=== PATIENT | female | born 1930 | race Caucasian/White ===

== ENCOUNTER 2017-07-05 09:02 | Inpatient (IN) | payer OTHER ==
[~2017-07-05] VITALS: Ht 149.9 cm; Wt 47.0 kg
[2017-07-05] VITALS (27 sets, daily range): BP systolic 98–184; BP diastolic 55–77; PULSE 50–76; RESP 16–34; Ht 149.9 cm; Wt 47.0 kg
[~2017-07-05 09:02] MED LIST: CLINDAMYCIN 600 MG/D5W (PMX) 50 ML IVPB SCH; LACTATED RINGER'S 1,000 ML IV SCH; TRANEXAMIC ACID 1,000 MG in SOD CHLORIDE 0.9% 100 ML IV SCH
[2017-07-05] MEDS ORDERED: LISI20TA11 PO (12:26)
[2017-07-05] MEDS ORDERED: ATEN100T PO (12:26)
[2017-07-05] MEDS ORDERED: PRAV80TA27 PO (12:27)
[2017-07-05] MEDS ORDERED: [UNRECOGNIZED DRUG - CODE] PO (12:28)
[2017-07-05] MEDS ORDERED: FOLI1TAB5 PO (12:28)
[2017-07-05] MEDS ORDERED: FLUT16SP17 NASAL (12:29)
[2017-07-05] MEDS ORDERED: LORA-186 PO (12:29)
[2017-07-05] MEDS ORDERED: TRAM-40 PO (12:30)
[2017-07-05] MEDS ORDERED: OMEP20CA16 PO (12:30)
[2017-07-05] MEDS ORDERED: ACET-820 PO (12:32)
[2017-07-05] MEDS ORDERED: POLYMYXIN/BACITRACIN 1L IRRIG ONE (14:37)
[2017-07-05] MEDS ORDERED: KETOROLAC 30 MG INJ ONE (14:37)
[2017-07-05] MEDS ORDERED: morphine SULFATE/PF (10 MG/10 ML) INJ ONE (14:37)
--- NOTE | 2017-07-05 14:44 | HPN ---
Date/Time of Note Date/Time of Note DATE: 07/05/17 TIME: 14:44 Interval H&P Admission Note Pt. seen H&P reviewed: No system changes SARY SARMIENTO PA-C Jul 05, 2017 14:44
[2017-07-05] MEDS ORDERED: FENTAnyl 50 MCG/ML VIAL ONE (15:06)
[2017-07-05] MEDS ORDERED: MIDAZOLAM 1 MG/ML 2 ML INJ ONE (15:06)
[2017-07-05] MEDS ORDERED: DEXAMETHASONE 4 MG/ML 1 ML INJ ONE (16:21)
[2017-07-05] MEDS ORDERED: PROPOFOL 20 ML ONE (16:21)
[2017-07-05] MEDS ORDERED: ONDANSETRON 4 MG INJ ONE (16:22)
[2017-07-05] MEDS ORDERED: ROCURONIUM 50 MG INJ ONE (16:22)
[2017-07-05] MEDS ORDERED: METOCLOPRAMIDE 10 MG INJ IV PRN (16:30)
[2017-07-05] MEDS ORDERED: OXYCODONE/ACETAMINOPHEN (5/325) TAB PO PRN ×2 (16:30)
[2017-07-05] MEDS ORDERED: ONDANSETRON 4 MG INJ IV PRN (16:30)
[2017-07-05] MEDS ORDERED: FENTAnyl 50 MCG/ML VIAL IV PRN ×3 (16:30)
[2017-07-05] MEDS ORDERED: LABETALOL HCL 20MG INJ IV PRN (16:30)
[2017-07-05] MEDS ORDERED: DIPHENHYDRAMINE 50 MG INJ IV PRN (16:30)
[2017-07-05] MEDS ORDERED: MEPERIDINE 25 MG INJ IV PRN (16:30)
[2017-07-05] MEDS ORDERED: hydrALAzine 20 MG INJ IV PRN (16:30)
[2017-07-05] MEDS ORDERED: EPHEDrine SULFATE 50 MG/5 ML SYG IV PRN (16:30)
[2017-07-05] MEDS ORDERED: HYDROmorphONE (0.2 MG/ML) 10ML SYG IV PRN ×3 (16:30)
[2017-07-05] MEDS ORDERED: LIDOCAINE 2% (SDV) 5 ML INJ ONE (16:36)
[2017-07-05] MEDS ORDERED: ROPIVACAINE 0.5 % 30 ML VIAL ONE (16:37)
--- NOTE | 2017-07-05 16:44 | SIPON ---
Date/Time of Note Date/Time of Note DATE: 07/05/17 TIME: 16:42 Operative Report Preoperative Diagnosis left knee medial osteoarthritis Postoperative Diagnosis same Operation/Procedure Performed left medial UKA Surgeon Vinny Murillo MD mailroom assistant JORDI Vizcaino Anesthesia: spinal Estimated blood loss: 100 - 150 ml's Transfusion Required none Specimen none Grafts/Implants left medial S&N ZUK Femoral Compnent size C Tibial Component Size 1 Poly 10mm Complications none CHANTE GREEN MD Jul 05, 2017 16:44
[2017-07-05] MEDS ORDERED: BUPIVACAINE 0.5%/EPI (SDV) 30 ML INJ INJ ONE (16:49)
--- NOTE | 2017-07-05 16:53 | OPR ---
Date/Time of Note Date/Time of Note DATE: 07/05/17 TIME: 16:41 Operative Report Procedure Date: Jul 05, 2017 Preoperative Diagnosis left knee DJD Postoperative Diagnosis same Operation/Procedure Performed Left medial unicondylar knee replacement Surgeon see signature line Rail Switchman Anton Hamlin Anesthesia Type: general Anesthesiologist: ABY CARRILLO Estimated Blood Loss: 150 - 200 ml's Transfusion none Specimen bone Grafts/Implants ZUK knee, C femur, 1 tibia, 10 poly Complications none Pt Condition Post Procedure: stable Indications severe DJD Of the left knee Procedure Description see dictation NAFISA MCCAIN Jul 05, 2017 16:51
[2017-07-05] MEDS ORDERED: ASPIRIN (EC) 325 MG TAB PO ONE (17:00)
[2017-07-05] MEDS ORDERED: MAGNESIUM HYDROXIDE 30ML CUP PO PRN (17:00)
[2017-07-05] MEDS ORDERED: NA PHOSPHATE/BIPHOS 133 ML ENEMA PR PRN (17:00)
[2017-07-05] MEDS ORDERED: BISACODYL 10 MG SUPP PR PRN (17:00)
[2017-07-05] MEDS ORDERED: BETHANECHOL 25 MG TAB PO PRN (17:00)
[2017-07-05] MEDS ORDERED: DIPHENHYDRAMINE 50 MG INJ IM PRN (17:00)
[2017-07-05] MEDS ORDERED: HYDROmorphONE 0.2 MG/ML PCA IV PRN (17:00)
[2017-07-05] MEDS ORDERED: ZOLPIDEM 5 MG TAB PO PRN (17:00)
[2017-07-05] MEDS ORDERED: DOCUSATE SODIUM 100 MG CAP PO ONE (17:00)
[2017-07-05] MEDS ORDERED: COUMADIN NOTE XX SCH (17:00)
[2017-07-05] MEDS ORDERED: NALOXONE (0.4 MG/ML) INJ IV PRN (17:00)
[2017-07-05] MEDS ORDERED: oxyCODONE 5 MG TAB PO PRN ×3 (17:00)
[2017-07-05] MEDS ORDERED: SENNA/DOCUSATE NA (8.6MG/50MG) TAB PO PRN (17:00)
[2017-07-05] MEDS ORDERED: MEPERIDINE 10 MG/ML 30 ML PCA IV PRN (17:00)
[2017-07-05] MEDS ORDERED: LORAZEPAM 2 MG INJ IV PRN (18:00)
[2017-07-05] MEDS ORDERED: traMADol 50 MG TAB PO PRN (18:00)
--- NOTE | 2017-07-05 18:11 | HP ---
Date/Time of Note Date/Time of Note DATE: 07/05/17 TIME: 18:03 Assessment/Plan VTE Prophylaxis VTE Prophylaxis Intervention: SCD's Lines/Catheters IV Catheter Type (from Nrsg): Peripheral IV Assessment/Plan Chief Complaint/Hosp Course Patient is a 86-year-old female here for elective left knee surgery Assessment and plan Left knee pain Left knee replacement Hypertension Hypertriglyceridemia Gastric reflux -Status post left knee replacement, consulting for orthopedic surgery -Restart medications as able -Cardiac diet for blood pressure -Pain control as needed -Supportive care -We will follow Problems: HPI/ROS Admit Date/Time Admit Date/Time Jul 05, 2017 at 11:04 Hx of Present Illness Patient is a 86-year-old female with past medical history significant for arthritis and hypertension who presents to [facility] for elective left knee replacement. Patient successfully received left knee replacement and is resting comfortably in the ED. Patient only complains of left knee pain at the surgical site. Patient denies any shortness of breath nausea vomiting or headache. PMH: Arthritis, hypertension, allergies, hypertriglyceridemia, GERD PSH: Left knee replacement, right knee replacement in 2011 Social: Non-smoker, drinks, denies drugs Meds: Atenolol, fluticasone spray, lisinopril, loratadine, tramadol, acetaminophen, folic acid, omeprazole, pravastatin PMH/Family/Social Social History Smoking Status: Former smoker Exam/Review of Systems Vital Signs Vitals Vital Signs Date Time Temp Pulse Resp B/P Pulse Ox O2 Delivery O2 Flow Rate FiO2 07/05/17 17:53 50 24 123/72 95 Room Air 07/05/17 17:13 97.6 Exam Exam Physical exam General: Patient is laying in bed and answers questions appropriately Mentation: Patient is alert and oriented 4, Head: Normocephalic atraumatic Eyes: EOMI, pupils reactive to light Neck: Supple, nontender, midline Respiratory: Clear to auscultation bilaterally Cardiovascular: regular rate, no obvious murmurs Gastrointestinal: non-tender to palpation, bowel sounds heard. Neurological: Moves all extremities spontaneously Skin: No new skin lesions, left knee surgical site bandaged and CDI Medications Medications Current Medications Lactated Ringer's 1,000 ml @ 25 mls/hr Q24H IV ; Start 07/05/17 at 06:00; Stop 07/06/17 at 21:59 Dextrose/Lactated Ringer's (D5-Lr) 1,000 ml @ 80 mls/hr [id number] IV ; Start 07/12 at 16:55 Hydromorphone HCl (Dilaudid [employer]ER) Q4PCA PRN IV SEVERE PAIN 8-10; Start at 17:00; Stop 07/06/17 at 09:00 Meperidine HCl (Demerol CAFETERIA [employer]OD SERVER) Q4PCA PRN IV SEVERE PAIN 8-10; Start 07/05/17 at 17:00; Stop 07/06/17 at 09:00; Status Future Hold Oxycodone HCl (Roxicodone) 20 mg Q3H PRN PO PAIN LEVEL 8-10; Start 07/05/17 at 17:00; Status UNV Oxycodone HCl (Roxicodone) 10 mg Q3H PRN PO PAIN LEVEL 4-7; Start 07/05/17 at 17:00; Status UNV Oxycodone HCl 5 mg 5 mg Q3H PRN PO PAIN LEVEL 1-3; Start 07/05/17 at 17:00; Status UNV Acetaminophen (Ofirmev 1000mg/ 100ml Iv) 100 ml @ 400 mls/hr Q8H IVPB ; Start 07/05/17 at 17:00; Stop 07/07/17 at 09:14 Zolpidem Tartrate (Ambien) 5 mg HS PRN PO INSOMNIA; Start 07/05/17 at 17:00; Status UNV Ondansetron HCl (Zofran Inj) 4 mg Q6H IV ; Start 07/05/17 at 17:00; Stop 07/06 at 11:01 Miscellaneous Information (Note) NOTE XX ; Start 07/05/17 at 17:00 Aspirin (Ecotrin) 325 mg DAILY PO ; Start 07/06/17 at 09:00; Stop 07/09/17 at 08:59 Dexamethasone (Decadron) 4 mg DAILY@07 IV ; Start 07/06/17 at 07:00; Stop at 06:59 Pantoprazole (Protonix Tab) 40 mg DAILY@06 PO ; Start 07/07/17 at 06:00 Docusate Sodium/ Ferrous Fumarate (Emory-Sequels) 1 tab BID PO ; Start at 09:00 Docusate Sodium (Colace) 200 mg BID PO ; Start 07/06/17 at 09:00; Stop at 08:59 Simethicone (Mylicon) 80 mg TID PRN PO DISTENSION/GAS/BLOATING; Start at 17:00; Status UNV Senna/Docusate Sodium (Senokot-S) 2 tab BID PRN PO CONSTIPATION; Start at 17:00; Status UNV Magnesium Hydroxide (Milk Of Mag) 30 ml HS PRN PO CONSTIPATION; Start at 17:00 Bisacodyl (Dulcolax Supp) 10 mg DAILY PRN [place] CONSTIPATION; Start 07/05/17 at 17:00 Sodium Biphosphate/ Sodium Phosphate (Fleet Enema) 133 ml DAILY PRN [place] CONSTIPATION; Start 07/05/17 at 17:00; Status UNV Diphenhydramine HCl (Benadryl) 25 mg Q4H PRN IM ITCHING OR RASH; Start at 17:00 Bupivacaine HCl/ Epinephrine Bitart (Marcaine 0.25%/ Epi (Sdv) 30 ml) 20 ml DAILY@06 PRN INJ ADMINSTER BY SURGEON ONLY; Start 07/06/17 at 06:00; Stop at 05:59 Naloxone HCl 0.2 mg 0.2 mg Q2M PRN IV DECREASED REPIRATORY RATE; Start at 17:00 Clindamycin HCl/ Dextrose (Cleocin 900 Mg/ D5W (Pmx)) 50 ml @ 50 mls/hr Q8 IVPB ; Start 07/05/17 at 22:00; Stop 07/06/17 at 12:00 Gabapentin (Neurontin) 100 mg TID GTB ; Start 07/05/17 at 21:00; Stop at 20:59 Atenolol (Tenormin) 100 mg DAILY PO ; Start 07/06/17 at 09:00 Lisinopril (Zestril) 20 mg DAILY PO ; Start 07/06/17 at 09:00 Loratadine (Claritin) 10 mg DAILY PO ; Start 07/06/17 at 09:00 Tramadol HCl (Ultram) 50 mg TID PRN PO PAIN; Start 07/05/17 at 18:00; Status UNV Miscellaneous Information 1 each DAILY PO ; Start 07/06/17 at 09:00; Status UNV Miscellaneous Information 80 mg HS PO ; Start 07/05/17 at 21:00; Status UNV Lorazepam (Ativan) 0.5 mg Q6H PRN IV anxiety; Start 07/05/17 at 18:00; Status UNV EMMETT NUNN Jul 05, 2017 18:11
[2017-07-05] MEDS: ACETAMINOPHEN 1000MG/100ML IV 100 ML IVPB SCH (19:13)
[2017-07-05] MEDS ORDERED: TRANEXAMIC ACID IVPB ONE (20:00)
[2017-07-05] MEDS ORDERED: SOD CHLORIDE 0.9% IVPB ONE (20:00)
[2017-07-05] MEDS ORDERED: ATORVASTATIN 20 MG TAB PO SCH (21:00)
[2017-07-05] MEDS: DEXTROSE 5%-LR 1,000 ML IV SCH (22:22)
[2017-07-05] MEDS: GABAPENTIN 100 MG CAP GTB SCH (22:59)
[2017-07-05] MEDS: ONDANSETRON 4 MG INJ IV SCH ×2 (22:59→23:00)
[2017-07-06] VITALS: BP 150/65; RESP 19
[2017-07-06] MEDS: CLINDAMYCIN 900 MG/D5W (PMX) 50 ML IVPB SCH ×2 (01:07→06:11)
[2017-07-06] MEDS: ACETAMINOPHEN 1000MG/100ML IV 100 ML IVPB SCH ×2 (01:11→09:16)
[2017-07-06] MEDS ORDERED: TRANEXAMIC ACID IVPB ONE (02:00)
[2017-07-06] MEDS ORDERED: SOD CHLORIDE 0.9% IVPB ONE (02:00)
[2017-07-06 02:21] VITALS: BP 159/93; RESP 18
--- NOTE | 2017-07-06 02:25 | OPR ---
DATE OF OPERATION: 07/05/2017 PREOPERATIVE DIAGNOSIS: Osteoarthritis of the left knee. POSTOPERATIVE DIAGNOSIS: Osteoarthritis of the left knee. OPERATION: Left medial unicondylar knee replacement. SURGEON: Lidia ANESTHESIA: General. ANESTHESIOLOGIST: Dr. Juan Ayers TECHNICAL PROJECT LEAD: Anton Hamlin ESTIMATED BLOOD LOSS: 100 mL. COMPLICATIONS: None. INDICATIONS: The patient is an 86-year-old female with advanced osteoarthritis of her left knee. DESCRIPTION OF PROCEDURE: After administration of anesthesia, the patient was placed supine on the operating room table. All bony points were well padded. Preoperative antibiotics were administered . The left knee was examined and found to have a flexion deformity of 10 degrees, and a varus defor mity of 10 degrees. An anterior approach was used. The medial compartment was exposed with a subva stus approach. The medial collateral ligament was protected. There was severe wear of the medial c ompartment with complete loss of cartilage, osteophytes and loose bodies. The medial unicondylar kn ee replacement was prepared using a [employer] knee system. The tibial cut was first made and 3 to 4 mm of bone removed from the medial side. After this, the femoral cuts were made with the provided jigs. The femur was prepared for a size C femoral component, and the tibia prepared for a size 1 tibia. Ten mm of polyethylene was found to be well fitting. With the trials in place, the knee had almost full range of motion with good balance and tracking. Osteophytes were removed. The hemostasis was achieved with electrocautery and Aquamantys. Final implants were then cemented in place including a size C femur, size 1 tibia. Ten mm of polyethylene was placed. Excess cement was removed. The kn ee was injected with 0.25% Marcaine with epinephrine, along with Toradol and closed in layers using #1 Vicryl for arthrotomy and fascia, 2-0 Vicryl for subcutaneous tissue and 3-0 Monocryl for the ski n. The patient was transferred to the recovery room in stable condition. Dictated By: NAFISA BRAVO/CORAL Conf#: [id number] DID#: [id number]
[2017-07-06] MEDS: DEXTROSE 5%-LR 1,000 ML IV SCH (05:25)
[2017-07-06] MEDS: ONDANSETRON 4 MG INJ IV SCH ×2 (05:34→11:00)
[2017-07-06 05:50] LABS: BASOPHILS % 0.1 % (0.0-2.0); HEMATOCRIT 34.6 % (37.0-47.0); HEMOGLOBIN 10.8 g/dl (12.0-16.0); LYMPHOCYTES # 0.8 10^3/ul (0.8-2.9); LYMPHOCYTES % 6.8 % (15.0-51.0); MEAN CORPUSCULAR HEMOGLOBIN 32.8 pg (29.0-33.0); MEAN CORPUSCULAR HGB CONC 31.2 g/dl (32.0-37.0); MEAN CORPUSCULAR VOLUME 105.2 fl (82.0-101.0); MEAN PLATELET VOLUME 11.2 fl (7.4-10.4); MONOCYTE # 0.5 10^3/ul (0.3-0.9); NEUTROPHIL # 9.9 10^3/ul (1.6-7.5); NEUTROPHILS % 88.3 % (39.0-77.0); PLATELET COUNT 208 10^3/UL (140-415); RED BLOOD COUNT 3.29 10^6/ul (4.20-5.40); RED CELL DISTRIBUTION WIDTH 12.1 % (11.5-14.5); WHITE BLOOD COUNT 11.3 10^3/ul (4.8-10.8)
[2017-07-06] MEDS ORDERED: BUPIVACAINE 0.25%/EPI (SDV) 30 ML INJ INJ PRN (06:00)
[2017-07-06 06:39] LABS: CALCIUM 8.7 mg/dl (8.4-10.2); CREATININE 0.82 mg/dl (0.44-1.00); MAGNESIUM 1.1 mg/dl (1.7-2.5); PHOSPHORUS 4.9 mg/dl (2.5-4.9); POTASSIUM 4.6 mmol/L (3.5-5.1)
[2017-07-06] MEDS ORDERED: DEXAMETHASONE 4 MG/ML 1 ML INJ IV SCH (07:00)
--- NOTE | 2017-07-06 08:05 | PN ---
Date/Time of Note Date/Time of Note DATE: 07/06/17 TIME: 08:00 Assessment/Plan VTE Prophylaxis VTE Prophylaxis Intervention: ambulation, SCD's, other (Aspirin 325 mg daily) Lines/Catheters IV Catheter Type (from Nrs): Peripheral IV Byrne in Place (from Nrs): No Assessment/Plan Problems: (1) Status post right partial knee replacement Assessment/Plan -Pain Meds as needed -Keep Mepilex dressing applied until follow-up -OOB with PT -ASA/SCDs for DVT Prophylaxis -Continue monitoring with Internal Medicine -Patient Stable -DC home today with home health pending no complications. Subjective 24 Hr Interval Summary 86-year-old female postop day 1 status post left unicondylar arthroplasty to the medial side. Patient is doing well status post surgery. Has yet to initiate physical therapy. Denies any pain at this time. Patient is lying comfortably in bed. Denies any complications status post surgery. Denies any fevers, chills or malaise. Denies any calf pain. Constitutional: no complaints Pain Control: well controlled Exam/Review of Systems Vital Signs Vitals Vital Signs Date Time Temp Pulse Resp B/P Pulse Ox O2 Delivery O2 Flow Rate FiO2 07/06/17 02:21 97.6 58 18 159/93 97 07/05/17 20:30 Room Air Intake and Output 07/05/17 07/05/17 07/06/17 15:00 23:00 07:00 Intake Total 900 ml 650 ml Output Total 150 ml Balance 750 ml 650 ml Exam Free Text/Dictation -Dressing remained stable over the knee. No signs of any fluid drainage or complications of wound. -5/5 Tibialis Anterior, EHL Gastrocnemius/Soleus and Peroneals -Fully extending on exam today with flexion to 90. -Normal Sensation -Palpable DP/PT, Capillary Refill <2 secs -No Distal Edema -Negative Bel Sign/No calf pain -Toes Freely Movable Constitutional: alert, oriented, well developed Results Result Diagram: 07/06/17 0437 07/06/17 0437 SARY SARMIENTO PA-C Jul 06, 2017 08:05
--- NOTE | 2017-07-06 08:08 | PDOCDIS ---
Discharge Instructions DIAGNOSIS Discharge Diagnosis Status post left knee medial unicondylar knee replacement CONDITION Patient Condition: Stable HOME CARE INSTRUCTIONS: Diet Instructions: Regular ACTIVITY: Activity Restrictions: Slowly Increase Activity Rest between Activity Avoid heavy lifting No Sexual Activity Do not Drive Do not operate Machinery Do not operate Power Tool Avoid Heavy Housework Keep Limb Elevated (And use cold therapy.) Weight Bearing (Weightbearing as tolerated. May use front wheeled walker for assisted ambulation if needed.) Bathing Restrictions: Shower (Keep wound dry. Continue with Mepilex dressing until postoperative appointment.) FOLLOW UP/APPOINTMENTS Follow-up Plan Follow-up on postoperative appointment provided at her preoperative visit. SARY SARMIENTO PA-C Jul 06, 2017 08:08
[2017-07-06 08:30] VITALS: BP 157/71; RESP 18
[2017-07-06] MEDS ORDERED: NON-FORMULARY/PATIENT OWN MED (Omeprazole* 20 MG) PO SCH (09:00)
[2017-07-06] MEDS ORDERED: LORATADINE 10 MG TAB PO SCH (09:00)
[2017-07-06] MEDS ORDERED: MULTIVITAMINS/MINERALS TAB PO SCH (09:00)
[2017-07-06] MEDS ORDERED: LISINOPRIL 20 MG TAB PO SCH (09:00)
[2017-07-06] MEDS ORDERED: FERROUS FUMARATE (SR) TAB PO SCH (09:00)
[2017-07-06] MEDS ORDERED: ATENOLOL 100 MG TAB PO SCH (09:00)
[2017-07-06] MEDS ORDERED: ASPIRIN (EC) 325 MG TAB PO SCH (09:00)
[2017-07-06] MEDS ORDERED: DOCUSATE SODIUM 100 MG CAP PO SCH (09:00)
[2017-07-06] MEDS: GABAPENTIN 100 MG CAP GTB SCH (09:16)
--- NOTE | 2017-07-06 13:40 | PN ---
Date/Time of Note Date/Time of Note DATE: 07/06/17 TIME: 13:39 Assessment/Plan VTE Prophylaxis VTE Prophylaxis Intervention: SCD's Lines/Catheters IV Catheter Type (from Nrsg): Peripheral IV Urinary Cath still in place: No Assessment/Plan Chief Complaint/Hosp Course Patient is a 86-year-old female here for elective left knee surgery Assessment and plan Left knee pain Left knee replacement Hypertension Hypertriglyceridemia Gastric reflux -Status post left knee replacement, consulting for orthopedic surgery -Restart medications as able -Cardiac diet for blood pressure -Pain control as needed -Supportive care -We will follow -likely dc today Problems: Subjective 24 Hr Interval Summary Free Text/Dictation feels well, minimal pain Exam/Review of Systems Vital Signs Vitals Vital Signs Date Time Temp Pulse Resp B/P Pulse Ox O2 Delivery O2 Flow Rate FiO2 07/06/17 08:30 98.5 75 18 157/71 93 07/05/17 20:30 Room Air Intake and Output 07/05/17 07/05/17 07/06/17 15:00 23:00 07:00 Intake Total 900 ml 650 ml Output Total 150 ml Balance 750 ml 650 ml Exam Physical exam General: Patient is laying in bed and answers questions appropriately Mentation: Patient is alert and oriented 4, Head: Normocephalic atraumatic Eyes: EOMI, pupils reactive to light Neck: Supple, nontender, midline Respiratory: Clear to auscultation bilaterally Cardiovascular: regular rate, no obvious murmurs Gastrointestinal: non-tender to palpation, bowel sounds heard. Neurological: Moves all extremities spontaneously Skin: No new skin lesions, left knee surgical site bandaged and CDI Results Result Diagram: 07/06/17 0437 07/06/17 0437 Results 24 hrs Laboratory Tests Test 07/06/17 04:37 White Blood Count 11.3 H Red Blood Count 3.29 L Hemoglobin 10.8 L Hematocrit 34.6 L Mean Corpuscular Volume 105.2 H Mean Corpuscular Hemoglobin 32.8 Mean Corpuscular Hemoglobin Concent 31.2 L Red Cell Distribution Width 12.1 Platelet Count 208 Mean Platelet Volume 11.2 H Neutrophils % 88.3 H Lymphocytes % 6.8 L Monocytes % 4.0 Eosinophils % 0.0 Basophils % 0.1 Nucleated Red Blood Cells % 0.0 Neutrophils # 9.9 H Lymphocytes # 0.8 Monocytes # 0.5 Eosinophils # 0.0 Basophils # 0.0 Nucleated Red Blood Cells # 0.0 Sodium Level 133 L Potassium Level 4.6 Chloride Level 100 Carbon Dioxide Level 27 Anion Gap 11 Blood Urea Nitrogen 17 Creatinine 0.82 Glucose Level 216 Calcium Level 8.7 Phosphorus Level 4.9 Magnesium Level 1.1 L Medications Medications Current Medications Lactated Ringer's 1,000 ml @ 25 mls/hr Q24H IV ; Start 07/05/17 at 06:00; Stop 07/06/17 at 21:59 Dextrose/Lactated Ringer's (D5-Lr) 1,000 ml @ 80 mls/hr [id number] IV Last administered on 07/05/17 22:22; Admin Dose 80 MLS/HR; Start 07/05/17 at 16:55 Oxycodone HCl (Roxicodone) 20 mg Q3H PRN PO PAIN LEVEL 8-10; Start 07/05/17 at 17:00 Oxycodone HCl (Roxicodone) 10 mg Q3H PRN PO PAIN LEVEL 4-7; Start 07/05/17 at 17:00 Oxycodone HCl 5 mg 5 mg Q3H PRN PO PAIN LEVEL 1-3; Start 07/05/17 at 17:00 Acetaminophen (Ofirmev 1000mg/ 100ml Iv) 100 ml @ 400 mls/hr Q8H IVPB Last administered on 07/06/17 09:16; Admin Dose 400 MLS/HR; Start 07/05/17 at 17: 00; Stop 07/07/17 at 09:14 Zolpidem Tartrate (Ambien) 5 mg HS PRN PO INSOMNIA; Start 07/05/17 at 17:00 Miscellaneous Information (Note) NOTE XX ; Start 07/05/17 at 17:00 Aspirin (Ecotrin) 325 mg DAILY PO Last administered on 07/06/17 09:17; Admin Dose 325 MG; Start 07/06/17 at 09:00; Stop 07/09/17 at 08:59 Dexamethasone (Decadron) 4 mg DAILY@07 IV Last administered on 07/06/17 06:11 ; Admin Dose 4 MG; Start 07/06/17 at 07:00; Stop 07/09/17 at 06:59 Pantoprazole (Protonix Tab) 40 mg DAILY@06 PO ; Start 07/07/17 at 06:00 Docusate Sodium/ Ferrous Fumarate (Emory-Sequels) 1 tab BID PO Last administered on 07/06/17 09:17; Admin Dose 1 TAB; Start 07/06/17 at 09:00 Docusate Sodium (Colace) 200 mg BID PO Last administered on 07/06/17 09:17; Admin Dose 200 MG; Start 07/06/17 at 09:00; Stop 07/09/17 at 08:59 Simethicone (Mylicon) 80 mg TID PRN PO DISTENSION/GAS/BLOATING; Start at 17:00 Senna/Docusate Sodium (Senokot-S) 2 tab BID PRN PO CONSTIPATION; Start at 17:00 Magnesium Hydroxide (Milk Of Mag) 30 ml HS PRN PO CONSTIPATION; Start at 17:00 Bisacodyl (Dulcolax Supp) 10 mg DAILY PRN [place] CONSTIPATION; Start 07/05/17 at 17:00 Sodium Biphosphate/ Sodium Phosphate (Fleet Enema) 133 ml DAILY PRN [place] CONSTIPATION; Start 07/05/17 at 17:00 Diphenhydramine HCl (Benadryl) 25 mg Q4H PRN IM ITCHING OR RASH; Start at 17:00 Bupivacaine HCl/ Epinephrine Bitart (Marcaine 0.25%/ Epi (Sdv) 30 ml) 20 ml DAILY@06 PRN INJ ADMINSTER BY SURGEON ONLY; Start 07/06/17 at 06:00; Stop at 05:59 Naloxone HCl (Narcan) 0.2 mg Q2M PRN IV DECREASED REPIRATORY RATE; Start at 17:00 Gabapentin (Neurontin) 100 mg TID GTB Last administered on 07/06/17 09:16; Admin Dose 100 MG; Start 07/05/17 at 21:00; Stop 07/08/17 at 20:59 Atenolol (Tenormin) 100 mg DAILY PO Last administered on 07/06/17 09:18; Admin Dose 100 MG; Start 07/06/17 at 09:00 Lisinopril (Zestril) 20 mg DAILY PO Last administered on 07/06/17 09:18; Admin Dose 20 MG; Start 07/06/17 at 09:00 Loratadine (Claritin) 10 mg DAILY PO Last administered on 07/06/17 09:16; Admin Dose 10 MG; Start 07/06/17 at 09:00 Tramadol HCl (Ultram) 50 mg TID PRN PO PAIN; Start 07/05/17 at 18:00 Multivitamins/ Minerals (Theragran-M) 1 tab DAILY PO Last administered on 07/06 09:17; Admin Dose 1 TAB; Start 07/06/17 at 09:00 Atorvastatin Calcium (Lipitor) 20 mg DAILY@21 PO Last administered on 22:59; Admin Dose 20 MG; Start 07/05/17 at 21:00 Lorazepam (Ativan) 0.5 mg Q6H PRN IV anxiety; Start 07/05/17 at 18:00 EMMETT NUNN Jul 06, 2017 13:40
--- NOTE | 2017-07-06 16:23 | DS ---
Date/Time of Note Date/Time of Note DATE: 07/06/17 TIME: 16:20 Discharge Summary Admission/Discharge Info Admit Date/Time Jul 05, 2017 at 11:04 Discharge Date/Time Jul 06, 2017 at 13:10 Discharge Diagnosis Status post left knee medial unicondylar knee replacement Patient Condition: Stable Hospital Course On the day of admission, the patient underwent Left knee medial unicompartmental joint arthroplasty Intraoperative complications: None Postoperative complications: None The patient was given prophylactic antibiotics and anticoagulants. On the day of surgery and first postoperative day patient was started on gait training and was taught usual restrictions following Partial knee replacement On postoperative day 1 dressing was clean dry and intact. No complications were observed. On the day of discharge, the wound was clean and healing well; there was no sign of infection. Wound care instructions were discussed with the patient. Discharge Temperature: 98.5 Discharge White Blood Cell Count: 11.3 Discharge Hemoglobin: 10.8 The patient was discharged home with home health. Arrangements were made for visiting nurses and home health/physical therapy. The patient will be seen in office at scheduled postoperative evaluation date given on their preoperative exam. Should patient complain of any problems prior to scheduled postoperative evaluation date, they may call into outpatient clinic to determine if they need to be scheduled at sooner appointment to be seen immediately if needed. Discharge medications: As per medication reconciliation form Diet: Same as preadmission diet. This is Sary Goff PA-C dictating discharge summary for Vinny Murillo MD. Home Meds Reported Medications Acetaminophen with Codeine (Tylenol with Codeine #4 Tablet) 1 Each Tablet, 1 EACH PO QID Y for PAIN, TAB 07/05/17 Tramadol Hcl* (Ultram*) 50 Mg Tablet, 50 MG PO TID Y for PAIN, TAB 07/05/17 Omeprazole* (Omeprazole*) 20 Mg Capsule.dr, 20 MG PO DAILY, #30 CAP 07/05/17 Fluticasone Propionate* (Fluticasone Propionate* Nasal) 50 Mcg/[place] - 16 Gm [place].susp, 1 SPRAY NASAL DAILY, #1 BOTTLE TO EACH NOSTRIL 07/05/17 Loratadine* (Claritin*) 10 Mg Tablet, 10 MG PO DAILY, TAB 07/05/17 Folic Acid/Multivits-Min/Lut (Centrum Silver Chewable Tablet) 1 Each Tab.chew, 1 EACH PO DAILY, TAB.CHEW 07/05/17 Acetaminophen (8Hr Arthritis Pain) 650 Mg Tablet.er, 650 MG PO BID Y for PAIN, TAB 07/05/17 Pravastatin Sodium* (Pravastatin Sodium*) 80 Mg Tablet, 80 MG PO HS, TAB 07/05/17 Lisinopril* (Lisinopril*) 20 Mg Tablet, 20 MG PO DAILY, #30 TAB 07/05/17 Atenolol* (Atenolol*) 100 Mg Tablet, 100 MG PO DAILY, #30 TAB 07/05/17 Follow-up Plan Follow-up on postoperative appointment provided at her preoperative visit. Primary Care Provider Froilan Martinez Pending Labs Laboratory Tests Test 07/06/17 04:37 White Blood Count 11.310^3/ul (4.8-10.8) Red Blood Count 3.2910^6/ul (4.20-5.40) Hemoglobin 10.8g/dl (12.0-16.0) Hematocrit 34.6% (37.0-47.0) Mean Corpuscular Volume 105.2fl (82.0-101.0) Mean Corpuscular Hemoglobin 32.8pg (29.0-33.0) Mean Corpuscular Hemoglobin Concent 31.2g/dl (32.0-37.0) Red Cell Distribution Width 12.1% (11.5-14.5) Platelet Count 96018^3/UL (140-415) Mean Platelet Volume 11.2fl (7.4-10.4) Neutrophils % 88.3% (39.0-77.0) Lymphocytes % 6.8% (15.0-51.0) Monocytes % 4.0% (0.0-11.0) Eosinophils % 0.0% (0.0-7.0) Basophils % 0.1% (0.0-2.0) Nucleated Red Blood Cells % 0.0/100WBC (0.0-0.0) Neutrophils # 9.910^3/ul (1.6-7.5) Lymphocytes # 0.810^3/ul (0.8-2.9) Monocytes # 0.510^3/ul (0.3-0.9) Eosinophils # 0.010^3/ul (0.0-0.5) Basophils # 0.010^3/ul (0.0-0.1) Nucleated Red Blood Cells # 0.010^3/ul (0.0-0.0) Sodium Level 133mmol/L (135-144) Potassium Level 4.6mmol/L (3.5-5.1) Chloride Level 100mmol/L (97-110) Carbon Dioxide Level 27mmol/L (21-31) Anion Gap 11 (8-16) Blood Urea Nitrogen 17mg/dl (7-20) Creatinine 0.82mg/dl (0.44-1.00) Glucose Level 216mg/dl (70-220) Calcium Level 8.7mg/dl (8.4-10.2) Phosphorus Level 4.9mg/dl (2.5-4.9) Magnesium Level 1.1mg/dl (1.7-2.5) SARY SARMIENTO PA-C Jul 06, 2017 16:23
[2017-07-07] MEDS ORDERED: PANTOPRAZOLE (EC) 40 MG TAB PO SCH (06:00)
== END 2017-07-06 13:10 | disposition home health service (06) | DRG 470 ==
LOC: REC 11:04 → EDSTATUS 15:00 → MS1 19:30
PROVIDERS: ADMIT Orthopaedic Surgery; ATTEND Orthopaedic Surgery
PROC: 0SRD0L9 Replacement of Left Knee Joint with Medial Unicondylar Synthetic Substitute, Cemented, Open Approach (ICD-10-PCS; principal; 2017-07-05 15:00)
DX: M17.12 Unilateral primary osteoarthritis, left knee (principal); F11.20 Opioid dependence, uncomplicated; I73.9 Peripheral vascular disease, unspecified; I10 Essential (primary) hypertension; K21.9 Gastro-esophageal reflux disease without esophagitis; I70.0 Atherosclerosis of aorta; J30.9 Allergic rhinitis, unspecified; C44.91 Basal cell carcinoma of skin, unspecified; Z96.651 Presence of right artificial knee joint; Z87.891 Personal history of nicotine dependence
CPT/HCPCS: 80048; 83735; 84100; 85025; 86850; 86870; 86900; 86901; 86902; 87081; 88304; 88311; 97162; 97166; C1713; J0131; J1100; J1885; J2250; J2274; J2405; J2795; J3010; J7120; J7121